=== PATIENT | male | born 1965 | race Caucasian/White ===

== ENCOUNTER 2020-09-01 09:12 | Emergency (ER) | payer OTHER, SELFPAY ==
[2020-09-01 09:28] VITALS: BP 162/92; PULSE 70; RESP 14; TEMP 36.1; O2SAT 100
[2020-09-01] MEDS: KETOROLAC (*BKC) 60 MG/2 ML VIAL IM (09:51)
[2020-09-01 09:55] LABS: Appearance Urine Clear (Clear); Bilirubin Urine Negative (Negative); Color Urine Yellow (Yellow); Glucose Urine UA Negative (Negative); Ketones Urine Negative (Negative); Leukocyte Esterase Ur Negative (Negative); Nitrate Urine Negative (Negative); Protein Urine Negative (Negative); Specific Grav Ur 1.025 (1.010-1.020); Urobilinogen Urine 0.2 mg/dL (0.2-1.0); pH Urine 5.5 (5.0-8.0)
--- NOTE | 2020-09-01 10:07 | ED.BACK ---
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 No fever or chills. MD elicited complaint: back pain Pertinent past history: prior back pain Onset (ago): day(s) Timing: intermittent Severity: moderate Pain scale (0-10): 8 Similar Symptoms Previously: Yes Radiation: right upper leg Exacerbating factors: movement Relieving factors: immobilization Context: while lifting, turning/twisting and bending Associated symptoms: denies other symptoms Related Data Allergies Allergy/AdvReac Type Severity Reaction Status Date / Time Penicillins Allergy Unknown Verified 07/25/17 09:47 sulfur dioxide Allergy Unknown Verified 07/25/17 09:47 Review of Systems Review of Systems: All systems reviewed & are unremarkable except as noted in HPI and below PMFSH Past Medical History Medical History Patient denies medical problems Family History Family History Other Diabetes mellitus Family history of malignant neoplasm Social History Social History Smoking status: Current every day smoker Alcohol intake: current Exam Const: General: no acute distress and alert Orientation/consciousness: patient oriented x3 HENMT: Head: normal to inspection Eyes: Conjunctivae: conjunctivae normal Pupils: Equal, round and reactive pupils present Neck: Neck: normal visual inspection, no lymphadenopathy and no meningeal signs Chest: Chest palpation & inspection: normal inspection of the chest Resp: Effort & Inspection: normal respiratory effort Auscultation: clear to auscultation bilaterally Cardio: Rate: regular rate Rhythm: regular rhythm GI: Auscultation: normal bowel sounds Urinary Catheter: Urinary Catheter: patent and draining Back/Spine/Pelvis: Back: no CVA tenderness Skin: General skin exam: normal color Rashes: no rashes Neuro: General: patient oriented x3, moves all extremities, no meningeal signs and no focal motor deficits Extrem: Other: right lower back pain right paravertebral area with palpation with no abdominal pain and negative straight leg-raising test Psych: Mental Status: mental status grossly normal Affect: normal affect Course Course Emergency Course: reassessment of patient after shot of Toradol feels much better pain level has improved, and reviewed urinalysis with patient and advised to drink more fluids, hand will give the patient a list of physicians to follow-up with. Vital Signs Vital signs: Vital Signs Temperature 36.1 C L 09/01/20 09:28 Pulse Rate 70 09/01/20 09:28 Respiratory Rate 14 09/01/20 09:28 Blood Pressure 162/92 H 09/01/20 09:28 Pulse Oximetry 100 09/01/20 09:28 Temperature 36.1 C L 09/01/20 09:28 Pulse Rate 70 09/01/20 09:28 Respiratory Rate 14 09/01/20 09:28 Blood Pressure 162/92 H 09/01/20 09:28 Pulse Oximetry 100 09/01/20 09:28 MDM - Back Pain/Injury Lab Data Labs: Lab Results 09/01/20 Range/Units 09:49 Urine Color Pending Urine Appearance Pending Urine pH Pending Ur Specific [place] Pending Urine Protein Pending Urine Glucose (UA) Pending Urine Ketones Pending Ur Blood (Man) Pending Urine Nitrate Pending Urine Bilirubin Pending Urine Urobilinogen Pending Ur Leukocyte Esterase Pending Critical Care Time Critical Care Time Critical Care Time: No Discharge Plan Discharge Clinical Impression: Sciatica Qualifiers:
[2020-09-01 10:09] LABS: Add Urine Microscopic? YES; Blood Urine Trace-Intact (Negative); Squamous Epithelial Cell Urine Few /hpf (Few); WBC Urine 0-3 /hpf (0-3)
[2020-09-01 10:10] LABS: Bacteria Urine Trace /hpf
== END 2020-09-01 10:21 | disposition home or self-care (01) ==
PROVIDERS: Emergency Provider Emergency Medicine
DX: M54.31 Sciatica, right side (principal)
CPT/HCPCS: 81001; 96372; 99283; J1885

== ENCOUNTER 2020-11-23 09:15 | Emergency (ER) | payer OTHER, SELFPAY ==
--- NOTE | ~2020-11-23 | CT_ITS ---
EXAMINATION: CT abdomen pelvis w con DATE: 11/23/2020 11:07 INDICATION: Left abdomen pain. Vomiting. TECHNIQUE: Computed tomography (CT) of the abdomen and pelvis was performed with 100 cc Omnipaque 350 intravenous contrast. The dose-length product was 316.97 mGy-cm. Automated exposure control and iter ative reconstruction technique were employed. COMPARISON: None. FINDINGS: Lung bases are unremarkable. Heart size is normal. No significant vascular abnormality. No lymphadenopathy. Gallbladder is present. The liver, spleen, pancreas, adrenal glands and kidneys are unremarkable. Nonobstructive bowel gas pattern. Diverticulosis without evidence for diverticulitis. No free air or free fluid. Mild lumbar spondylosis. There are surgical changes of the anterior abdominal wall. IMPRESSION: 1. No acute abdominal abnormality. Reviewed, dictated and finalized at location B.
--- NOTE | 2020-11-23 09:22 | ED.GIBLEED ---
HPI - GI Bleed General Chief complaint: Abdominal Pain Stated complaint: abd pain blood in stool Time Seen by Provider: 11/23/20 09:25 Source: patient Mode of arrival: ambulatory Limitations: no limitations History of Present Illness HPI Narrative: 55-year-old man comes in today complaining of bright red blood in his stools for the last week or 2. Patient states that has been quite regularly recently and most recently some episodes have had more than a tbsp of bright red blood. Patient states that he had some vomiting this morning and has had some left abdominal pain. He states he also has felt weak in the morning. He has not had any syncope, fever, blood in his vomitus, black stools, and denies NSAID use. He has had hemorrhoids in the past MD complaint: gross hematemesis Onset (ago): week(s) (1-2) Pain Consistency: intermittent Severity: moderate Relieving factors: none Exacerbating factors: none Context: hemorrhoids Associated symptoms: abdominal pain, nausea and vomiting Treatments Prior to Arrival: none Related Data Allergies Allergy/AdvReac Type Severity Reaction Status Date / Time Penicillins Allergy Unknown Rash Verified 11/23/20 09:32 sulfur dioxide Allergy Unknown Rash Verified 11/23/20 09:32 Review of Systems Constitutional: Constitutional: Denies chills, Denies fever(s) and Reports weakness Eyes: Eyes: Denies change in vision and Denies photophobia ENT: Denies nasal congestion and Denies sore throat Cardiovascular: Cardiovascular: Denies chest pain and Denies radiating jaw, neck or arm pain Respiratory: Respiratory: Denies cough and Denies dyspnea Gastrointestinal: Gastrointestinal: Reports abdominal pain, Denies diarrhea, Reports nausea and Reports vomiting Genitourinary: Genitourinary: Denies hematuria and Denies urinary frequency Musculoskeletal: Musculoskeletal: Denies arthralgias and Denies joint swelling Integumentary/Breasts: Skin/Breast: Denies pruritus, Denies erythema and Denies rash Neurologic: Denies vertigo, Reports dizziness, Denies syncope, Denies headache(s) and Denies numbness Hematologic/Lymphatic: Hematologic/Lymphatic: Denies easy bleeding and Denies easy bruising Allergic/Immunologic: Allergic/Immunologic: Denies lip swelling and Denies tongue swelling PMFSH Past Medical History Medical History (Updated 11/23/20 @ 12:08 by Moe Taylor MD) Hemorrhoids Patient denies medical problems Sciatica Family History Family History Other Diabetes mellitus Family history of malignant neoplasm Social History Social History (Updated 11/23/20 @ 12:05 by Moe Taylor MD) Smoking status: Current every day smoker Alcohol intake: current Alcohol use details: approximately every 3rd day Substance use: current Substance use type: marijuana Living arrangements: with family Exam Const: General: healthy appearing, no acute distress and alert Orientation/consciousness: patient oriented x3 Limitations: no limitations HENMT: Head: normal to inspection Mouth: Yes moist mucous membranes Throat: posterior oropharynx normal Eyes: Conjunctivae: conjunctivae normal Pupils: Equal, round and reactive pupils present EOM: EOMs intact bilaterally Resp: Effort & Inspection: normal respiratory effort and not labored Auscultation: clear to auscultation bilaterally, no rales, no rhonchi and no wheezes Cardio: Rate: regular rate Rhythm: regular rhythm Heart sounds: no murmurs GI: GI Palp: Yes Soft to palpation and Yes Tenderness to palpation present (GI) ( mild left upper quadrant) Auscultation: normal bowel sounds Rectal Exam: normal sphincter tone and heme positive stool Other: no tenderness, masses or palpable hemorrhoids on rectal exam. Skin: General skin exam: normal color, no jaundice and no pallor Rashes: no rashes Neuro: General: patient oriented x3, moves all extremities, no focal motor def
[2020-11-23 09:27] VITALS: BP 175/88; PULSE 71; RESP 20; TEMP 36.6; O2SAT 100
[2020-11-23 09:40] LABS: Occult Blood Positive (Negative)
[2020-11-23 09:55] LABS: Basophils Absolute Auto 0.04 K/mm3 (0.00-0.10); Basophils Percent Auto 0.5 % (0.0-1.0); Eosinophils Absolute Auto 0.32 K/mm3 (0.02-0.50); Eosinophils Percent Auto 4.3 % (1.0-6.0); Hematocrit 44.7 % (40.0-54.0); Hemoglobin 14.9 g/dL (14.0-18.0); Immature Granulocyte Absolute 0.03 K/mm3 (0.00-0.00); Immature Granulocyte Percent A 0.4 % (0.0-0.0); Lymphocytes Absolute Auto 1.29 K/mm3 (1.10-4.50); Lymphocytes Percent Auto 17.2 % (18.0-42.0); Mean Corpuscular HGB Conc 33.3 g/dL (32.0-36.0); Mean Corpuscular Hemoglobin 32.3 pg (27.0-31.0); Mean Platelet Volume 9.2 fl (8.7-11.0); Monocytes Absolute Auto 0.41 K/mm3 (0.10-0.90); Monocytes Percent Auto 5.5 % (2.0-11.0); Neutrophils Absolute Auto 5.4 K/mm3 (1.7-7.2); Neutrophils Percent Auto 72.1 % (50.0-70.0); Platelet Count Result 236 K/mm3 (150-420); Red Blood Count 4.61 M/mm3 (4.70-6.10); Red Cell Distribution Width 14.2 % (11.6-14.4); White Blood Count 7.5 K/mm3 (4.8-10.8)
[2020-11-23 10:09] VITALS: BP 123/74; PULSE 59
[2020-11-23 10:10] VITALS: BP 132/75; BP 135/86; PULSE 65; PULSE 69
[2020-11-23 10:10] LABS: INR 0.9; Partial Thromboplastin Time 25.9 SEC (23.90-30.70); Prothrombin Time 10.1 Seconds (9.50-12.10)
[2020-11-23 10:11] LABS: Alanine Aminotransferase 23 U/L (16-63); Albumin Level 3.7 g/dL (3.4-5.0); Alkaline Phosphatase 81 U/L (46-116); Anion Gap 9 mmol/L (8-16); Aspartate Amino Transferase 13 U/L (15-37); Bilirubin,Total 0.3 mg/dL (0.00-1.00); Blood Urea Nitrogen 16 mg/dL (7-18); Carbon Dioxide 27 mmol/L (21-32); Chloride 103 mmol/L (98-108); Estimated CRCL calculation 80 ml/min; Estimated Glomerular Filt Rate > 60; Glucose 113 mg/dL (70-99); Lipase 67 U/L (73-393); Osmolality Calculated 290 mOsm/kg (285-295); Potassium 4.3 mmol/L (3.5-5.1); Sodium 139 mmol/L (136-145); Total Protein 7.3 g/dL (6.4-8.2)
[2020-11-23] MEDS: ONDANSETRON INJ 4 MG/2 ML VIAL IV PUSH (10:11)
[2020-11-23] MEDS: PANTOPRAZOLE SODIUM IV 40 MG VIAL IV PUSH (10:12)
[2020-11-23 10:18] LABS: Lactic Acid Reflex 0.7 mmol/L (0.4-2.0)
[2020-11-23 12:30] VITALS: BP 131/86; PULSE 62; RESP 20; TEMP 36.7; O2SAT 99
== END 2020-11-23 12:35 | disposition home or self-care (01) ==
PROVIDERS: Emergency Provider Emergency Medicine
DX: K62.5 Hemorrhage of anus and rectum (principal)
CPT/HCPCS: 36415; 74177; 80053; 82272; 83605; 83690; 85025; 85610; 85730; 87040; 96374; 96375; 99283; 99284; C9113; J2405; Q9967

== ENCOUNTER 2021-02-15 13:02 | Emergency (ER) | payer OTHER, SELFPAY ==
--- NOTE | ~2021-02-15 | CT_ITS ---
EXAMINATION: CT abd pelvis lumbar w con INDICATION: Low back pain after fall TECHNIQUE: Computed tomographic images of the abdomen, pelvis, and lumbar spine were obtained after t he administration of 100 cc of Omnipaque 350 intravenous contrast. The dose-length product (DLP) was 331.58 mGy-cm. Automated exposure control and iterative reconstruction technique were employed. COMPARISON: None available FINDINGS: Abdomen and pelvis: The lung bases are clear. The heart size is normal. The liver, spleen, pancreas, gallbladder, and adrenal glands are normal. The kidneys are unremarkable. No pathologically enlarged abdominal or pelvic lymph nodes are identified. There is no free intraperitoneal gas or evidence of b owel obstruction. Lumbar spine: There is no fracture. There are 2 mm of retrolisthesis of L5 on S1. There is mild loss of intervertebral disc space height at L5-S1. The lumbar vertebral body heights are maintained. The p aravertebral soft tissues are normal. IMPRESSION: 1. No CT correlate for the patient's symptoms. 2. Mild lumbar spondylosis without acute findings. Reviewed, dictated and finalized at location A.
[2021-02-15 13:19] VITALS: BP 123/109; PULSE 74; RESP 20; TEMP 36.7; O2SAT 98
[2021-02-15 14:09] LABS: Basophils Absolute Auto 0.04 K/mm3 (0.00-0.10); Basophils Percent Auto 0.6 % (0.0-1.0); Eosinophils Absolute Auto 0.33 K/mm3 (0.02-0.50); Hematocrit 46.7 % (40.0-54.0); Hemoglobin 15.6 g/dL (14.0-18.0); Immature Granulocyte Absolute 0.02 K/mm3 (0.00-0.00); Immature Granulocyte Percent A 0.3 % (0.0-0.0); Lymphocytes Absolute Auto 1.76 K/mm3 (1.10-4.50); Lymphocytes Percent Auto 26.8 % (18.0-42.0); Mean Corpuscular HGB Conc 33.4 g/dL (32.0-36.0); Mean Corpuscular Hemoglobin 32.4 pg (27.0-31.0); Mean Corpuscular Volume 97.1 fL (78.0-102.0); Mean Platelet Volume 8.9 fl (8.7-11.0); Monocytes Absolute Auto 0.41 K/mm3 (0.10-0.90); Monocytes Percent Auto 6.3 % (2.0-11.0); Platelet Count Result 242 K/mm3 (150-420); Red Blood Count 4.81 M/mm3 (4.70-6.10); Red Cell Distribution Width 13.8 % (11.6-14.4); White Blood Count 6.6 K/mm3 (4.8-10.8)
[2021-02-15 14:32] LABS: Alanine Aminotransferase 21 U/L (16-63); Albumin Level 3.8 g/dL (3.4-5.0); Alkaline Phosphatase 81 U/L (46-116); Anion Gap 9 mmol/L (8-16); Aspartate Amino Transferase 14 U/L (15-37); Bilirubin,Total 0.4 mg/dL (0.00-1.00); Blood Urea Nitrogen 14 mg/dL (7-18); Calcium 9.4 mg/dL (8.5-10.1); Carbon Dioxide 29 mmol/L (21-32); Chloride 103 mmol/L (98-108); Estimated CRCL calculation 86 ml/min; Estimated Glomerular Filt Rate > 60; Glucose 114 mg/dL (70-99); Osmolality Calculated 293 mOsm/kg (285-295); Potassium 4.3 mmol/L (3.5-5.1); Sodium 141 mmol/L (136-145); Total Protein 7.4 g/dL (6.4-8.2)
[2021-02-15 15:00] VITALS: PULSE 72; RESP 20; O2SAT 99
--- NOTE | 2021-02-15 16:46 | ED.BACK ---
HPI - Back Pain/Injury General Chief Complaint: Back Pain/Injury Stated Complaint: Back pain Time Seen by Provider: 02/15/21 13:25 Source: patient Mode of arrival: ambulatory Limitations: no limitations Related Data Home Medications Medication Instructions Recorded Confirmed No Home Medications 02/15/21 02/15/21 Allergies Allergy/AdvReac Type Severity Reaction Status Date / Time Penicillins Allergy Unknown Rash Verified 02/15/21 13:33 sulfur dioxide Allergy Unknown Rash Verified 02/15/21 13:33 PMFSH Past Medical History Medical History (Updated 02/15/21 @ 16:48 by Kyle Marquez MD) Hemorrhoids Patient denies medical problems Sciatica Surgical History Surgical History (Updated 11/24/20 @ 10:05 by Jasmina Lopez) No history of previous surgery Family History Family History Other Diabetes mellitus Family history of malignant neoplasm Social History Social History (Updated 11/24/20 @ 10:04 by Jasmina Lopez) Smoking packs per day: 1 Smoking cigarettes per day: 20.0 Years smoked: 30 Smoking pack-years: 30.00 Smoking status: Current every day smoker Tobacco type: cigarettes Alcohol intake: current Substance use: current Substance use type: marijuana Gender identity (if verbalized by the patient): Male Course Vital Signs Vital signs: Vital Signs Temperature 36.7 C 02/15/21 13:19 Pulse Rate 74 02/15/21 13:19 Respiratory Rate 20 02/15/21 13:19 Blood Pressure 123/109 H 02/15/21 13:19 Pulse Oximetry 98 02/15/21 13:19 Temperature 36.7 C 02/15/21 13:19 Pulse Rate 74 02/15/21 13:19 Respiratory Rate 20 02/15/21 13:19 Blood Pressure 123/109 H 02/15/21 13:19 Pulse Oximetry 98 02/15/21 13:19 MDM - Back Pain/Injury Lab Data Result diagrams: 02/15/21 13:58 02/15/21 13:58 Labs: Lab Results 02/15/21 02/15/21 Range/Units 13:58 13:58 WBC 6.6 (4.8-10.8) K/mm3 RBC 4.81 (4.70-6.10) M/mm3 Hgb 15.6 (14.0-18.0) g/dL Hct 46.7 (40.0-54.0) % MCV 97.1 (78.0-102.0) fL MCH 32.4 H (27.0-31.0) pg MCHC 33.4 (32.0-36.0) g/dL RDW 13.8 (11.6-14.4) % Plt Count 242 (150-420) K/mm3 MPV 8.9 (8.7-11.0) fl Immature Gran % (Auto) 0.3 H (0.0-0.0) % Neut % (Auto) 61.0 (50.0-70.0) % Lymph % (Auto) 26.8 (18.0-42.0) % [place] % (Auto) 6.3 (2.0-11.0) % Eos % (Auto) 5.0 (1.0-6.0) % Baso % (Auto) 0.6 (0.0-1.0) % Lymph # (Auto) 1.76 (1.10-4.50) K/mm3 [place] # (Auto) 0.41 (0.10-0.90) K/mm3 Eos # (Auto) 0.33 (0.02-0.50) K/mm3 Baso # (Auto) 0.04 (0.00-0.10) K/mm3 Abs Immat Gran (auto) 0.02 H (0.00-0.00) K/mm3 Absolute Neuts (auto) 4.0 (1.7-7.2) K/mm3 Absolute Nucleated RBC 0.00 (0.00-0.00) K/mm3 Nucleated RBC % 0.0 (0-0.0) % Sodium 141 (136-145) mmol/L Potassium 4.3 (3.5-5.1) mmol/L Chloride 103 (98-108) mmol/L Carbon Dioxide 29 (21-32) mmol/L Anion Gap 9 (8-16) mmol/L BUN 14 (7-18) mg/dL Creatinine 0.94 (0.70-1.30) mg/dL Estim Creat Clear Calc 86 ml/min Estimated GFR > 60 (59 - ) Glucose 114 H (70-99) mg/dL Calculated Osmolality 293 (285-295) mOsm/kg Calcium 9.4 (8.5-10.1) mg/dL Total Bilirubin 0.4 (0.00-1.00) mg/dL AST 14 L (15-37) U/L ALT 21 (16-63) U/L Alkaline Phosphatase 81 (46-116) U/L Total Protein 7.4 (6.4-8.2) g/dL Albumin 3.8 (3.4-5.0) g/dL Discharge Plan Discharge Clinical Impression: Back pain Qualifiers: Back pain location: low back pain Chronicity: acute Back pain laterality: unspecified Sciatica presence: without sciatica Qualified Code(s): M54.5 - Low back pain Patient Disposition: Home, Self-Care Condition: Stable Instructions: Antibiotic Form, Back Pain (ED) Additional Instructions: follow up with family doctor as needed Prescriptions: New dexamethasone 4 mg tablet 4 mg
[2021-02-15 16:52] VITALS: BP 166/88; PULSE 60; RESP 20; TEMP 36.7; O2SAT 99
[2021-02-15] MEDS: DEXAMETHASONE 4 MG TABLET 12 MG PO (17:00)
== END 2021-02-15 17:10 | disposition home or self-care (01) ==
PROVIDERS: Emergency Provider Emergency Medicine; PCP Family Medicine
DX: M54.5 Low back pain (principal)
CPT/HCPCS: 36415; 72132; 74177; 80053; 85025; 99283; 99284; J8540; Q9967

== ENCOUNTER 2022-02-13 11:04 | Emergency (ER) | payer OTHER, SELFPAY ==
--- NOTE | ~2022-02-13 | CT_ITS ---
EXAMINATION: CT abdomen pelvis wo con DATE: 02/13/2022 12:18 INDICATION: Lower abdominal and back pain TECHNIQUE: Computed tomography (CT) of the abdomen and pelvis was performed without intravenous contr ast. The dose-length product (DLP) was 330.13 mGy-cm. Automated exposure control and iterative recons truction technique were employed. COMPARISON: 02/15/2021 FINDINGS: The lung bases are clear. The heart size is normal. The liver, spleen, pancreas, gallbladde r, and adrenal glands are normal. The kidneys are unremarkable. No pathologically enlarged abdominal or pelvic lymph nodes are identified. There is no free intraperitoneal gas or evidence of bowel obstr uction. There is mild lumbar spondylosis. Colonic diverticulosis is present without evidence of dive rticulitis. IMPRESSION: 1. No CT correlate for the patient's symptoms. Reviewed, dictated and finalized at location A.
[2022-02-13 11:10] VITALS: BP 113/84; PULSE 76; RESP 14; TEMP 36.6; O2SAT 100
[2022-02-13] MEDS: SODIUM CHLORIDE 0.9% IV 1,000 ML 999 ML IV CONT (12:01)
[2022-02-13] MEDS: ONDANSETRON INJ 4 MG/2 ML VIAL IV PUSH (12:02)
[2022-02-13] MEDS: KETOROLAC 30 MG/ML VIAL (*BKC) IM (12:02)
[2022-02-13] MEDS: PANTOPRAZOLE SODIUM IV 40 MG VIAL IV PUSH (12:03)
[2022-02-13 12:06] LABS: Hematocrit 48.8 % (40.0-54.0); Hemoglobin 16.3 g/dL (14.0-18.0); Mean Corpuscular HGB Conc 33.4 g/dL (32.0-36.0); Mean Corpuscular Hemoglobin 31.6 pg (27.0-31.0); Mean Corpuscular Volume 94.6 fL (78.0-102.0); Mean Platelet Volume 9.4 fl (8.7-11.0); Platelet Count Result 157 K/mm3 (150-420); Red Blood Count 5.16 M/mm3 (4.70-6.10); Red Cell Distribution Width 14.3 % (11.6-14.4); White Blood Count 3.9 K/mm3 (4.8-10.8)
--- NOTE | 2022-02-13 12:08 | PC.NURSE ---
PT IS LYING ON STRETCHER WITH IVF INFUSING ORDERED. PT HAS URINAL AT BEDSIDE, WARM BLANKET PROVIDED. PT IS AWARE OF PLAN OF CARE AND THE NEED FOR URINE SPECIMEN. NAD NOTED. WILL CONTINUE TO MONITOR.
[2022-02-13 12:21] LABS: Band Neutrophils Percent 0 % (0-6); Basophils Absolute Manual 0.03 K/mm3 (0-0.1); Basophils Percent Manual 1 % (0-1); Eosinophils Absolute Manual 0.03 K/mm3 (0.02-0.5); Eosinophils Percent Manual 1 % (1-6); Lymphocytes Absolute Manual 1.44 K/mm3 (1.1-4.5); Lymphocytes Percent Manual 37 % (18-44); Monocytes Absolute Manual 0.42 K/mm3 (0.1-0.90); Monocytes Percent Manual 11 % (3-9); Neutrophils Absolute Manual 1.95 K/mm3 (1.3-6.7); Neutrophils Percent Manual 50 % (46-73); Platelet Estimate Adequate (Adequate); Total Cells Counted 100
[2022-02-13 12:22] LABS: Alanine Aminotransferase 27 U/L (16-63); Albumin Level 3.7 g/dL (3.4-5.0); Alkaline Phosphatase 76 U/L (46-116); Anion Gap 7 mmol/L (8-16); Aspartate Amino Transferase 23 U/L (15-37); Bilirubin,Total 0.2 mg/dL (0.00-1.00); Blood Urea Nitrogen 17 mg/dL (7-18); Calcium 9.1 mg/dL (8.5-10.1); Carbon Dioxide 28 mmol/L (21-32); Chloride 103 mmol/L (98-108); Estimated CRCL calculation 66 ml/min; Estimated Glomerular Filt Rate > 60; Ethanol < 3 mg/dL (0-6); Glucose 110 mg/dL (70-99); Lipase 126 U/L (73-393); Osmolality Calculated 288 mOsm/kg (285-295); Potassium 4.1 mmol/L (3.5-5.1); Sodium 138 mmol/L (136-145); Total Protein 7.4 g/dL (6.4-8.2)
[2022-02-13 12:27] LABS: Lactic Acid Reflex 0.9 mmol/L (0.4-2.0)
[2022-02-13 12:33] LABS: Add Urine Microscopic? YES; Appearance Urine Clear (Clear); Bilirubin Urine Negative (Negative); Blood Urine 1+ (Negative); Color Urine Light Yellow (Yellow); Glucose Urine UA Negative (Negative); Ketones Urine Negative (Negative); Leukocyte Esterase Ur Trace (Negative); Nitrate Urine Positive (Negative); Protein Urine 1+ (Negative); Specific Grav Ur >= 1.030 (1.010-1.020); Urobilinogen Urine 0.2 mg/dL (0.2-1.0); pH Urine 5.5 (5.0-8.0)
[2022-02-13 12:38] LABS: Amphetamine Screen Urine Negative (Negative); Barbiturate Screen Urine Negative (Negative); Benzodiazepines Screen Urine Negative (Negative); Cannabinoid Screen Urine Positive (Negative); Cocaine Screen Urine Negative (Negative); Methadone Screen Urine Negative (Negative); Opiate Screen Urine Negative (Negative); Phencyclidine Screen Urine Negative (Negative)
[2022-02-13 12:40] LABS: Bacteria Urine 2+ /hpf; RBC Urine 0-2 /hpf (0-2); Squamous Epithelial Cell Urine Rare /hpf (Few); WBC Urine 16-20 /hpf (0-3)
[2022-02-13 12:41] LABS: Influenza A QL RT-PCR Negative (Negative); Influenza B QL RT-PCR Negative (Negative); SARS-CoV-2 RNA PCR Positive (Negative)
[2022-02-13 12:51] VITALS: BP 107/72; PULSE 62; RESP 16; O2SAT 98
--- NOTE | 2022-02-13 13:47 | ED.GENADULT ---
HPI - General Adult General Chief complaint: Unspecified Stated complaint: since saturday stomach,back,head,legs hurt Time Seen by Provider: 02/13/22 11:08 Source: patient and RN notes reviewed Mode of arrival: ambulatory Limitations: no limitations History of Present Illness HPI narrative: generalized bodyaches, and mild dysuria. Onset (ago): day(s) (2) Location: abdomen Radiation: non-radiation Severity: moderate Severity scale (1-10): 4 Quality: aching Pain Consistency: constant Relieving factors: none Exacerbating factors: none Treatments prior to arrival: none Related Data Allergies Allergy/AdvReac Type Severity Reaction Status Date / Time Penicillins Allergy Unknown Rash Verified 02/13/22 11:23 sulfur dioxide Allergy Unknown Rash Verified 02/13/22 11:23 Review of Systems Review of Systems: All systems reviewed & are unremarkable except as noted in HPI and below Constitutional: Constitutional: Reports no additional constitutional complaints Eyes: Eyes: Reports no additional eye complaints ENT: Reports system reviewed and no additional complaints, except as documented Cardiovascular: Cardiovascular: Reports no additional cardiovascular complaints Respiratory: Respiratory: Reports no additional respiratory complaints Gastrointestinal: Gastrointestinal: Reports no additional gastrointestinal complaints Musculoskeletal: Musculoskeletal: Reports no additional musculoskeletal complaints Integumentary/Breasts: Skin/Breast: Reports system reviewed and no additional complaints, except as docu Neurologic: Reports system reviewed and no additional complaints, except as documented Psychiatric: Psychiatric: Reports no additional psychiatric complaints Endocrine: Endocrine: Reports no additional endocrine complaints Hematologic/Lymphatic: Hematologic/Lymphatic: Reports no additional hematologic/lymphatic complaints Allergic/Immunologic: Allergic/Immunologic: Reports no additional allergic/immunologic complaints [facility] Past Medical History Medical History COVID-19 Hemorrhoids Patient denies medical problems Sciatica UTI (urinary tract infection) Surgical History Surgical History No history of previous surgery Family History Family History Other Diabetes mellitus Family history of malignant neoplasm Social History Social History Smoking packs per day: 1 Smoking cigarettes per day: 20.0 Years smoked: 30 Smoking pack-years: 30.00 Smoking status: Current every day smoker Tobacco type: cigarettes Alcohol intake: current Alcohol use details: approximately every 3rd day Substance use: current Substance use type: marijuana Gender identity (if verbalized by the patient): Male Exam Const: General: healthy appearing and no acute distress Nutritional Appearance: well nourished Orientation/consciousness: patient oriented x3 Limitations: no limitations HENMT: Head: normal to inspection Ears: external ears normal, TM's normal bilaterally and EAC's normal General nose exam: Normal external nose present and Normal nares present Face and sinus: normal facial exam and sinuses nontender Mouth: Yes Normal oral and palatal mucosa present and Yes moist mucous membranes Teeth and gingiva: dentition normal Throat: posterior oropharynx normal Eyes: Conjunctivae: conjunctivae normal Pupils: Equal, round and reactive pupils present EOM: EOMs intact bilaterally Neck: Neck: normal visual inspection, no lymphadenopathy and no meningeal signs Chest: Chest palpation & inspection: normal inspection of the chest Resp: Effort & Inspection: normal respiratory effort Auscultation: clear to auscultation bilaterally Cardio: Rate: regular rate Rhythm: regular rhythm GI: GI Pal
[2022-02-13 14:45] VITALS: BP 110/72; PULSE 72; RESP 16; TEMP 36.7; O2SAT 98
== END 2022-02-13 14:45 | disposition home or self-care (01) ==
PROVIDERS: Emergency Provider Emergency Medicine; PCP Family Medicine
DX: U07.1 COVID-19 (principal); N39.0 Urinary tract infection, site not specified
CPT/HCPCS: 36415; 74176; 80053; 80307; 81001; 83605; 83690; 85025; 87502; 96361; 96365; 96372; 96375; 99284; C9113; C9803; J0696; J1885; J2405; J7030; U0003; U0005

== ENCOUNTER 2023-04-15 15:52 | Emergency (ER) | payer OTHER, SELFPAY ==
[2023-04-15 15:52] VITALS: BP 132/99; PULSE 83; RESP 16; TEMP 37.2; O2SAT 96
--- NOTE | 2023-04-15 16:06 | ED.GENADULT ---
HPI - General Adult General Chief complaint: Skin/Abscess/Foreign Body Stated complaint: spider bite Time Seen by Provider: 04/15/23 16:05 History of Present Illness HPI narrative: Healthy 57yo man presents for examination of a small wound on the right dorsal base of thumb. First noticed Saturday with a small spider crawling on him. Slight swelling, was worried about brown recluse venom. Related Data Home Medications Medication Instructions Recorded Confirmed No Home Medications 04/15/23 04/15/23 Allergies Allergy/AdvReac Type Severity Reaction Status Date / Time Penicillins Allergy Unknown Rash Verified 04/15/23 15:57 sulfur dioxide Allergy Unknown Rash Verified 04/15/23 15:57 Review of Systems Review of Systems: All systems reviewed & are unremarkable except as noted in HPI and below Constitutional: Constitutional: Denies fever(s) ENT: Denies dysphagia Cardiovascular: Cardiovascular: Denies chest pain Respiratory: Respiratory: Denies dyspnea PMFSH Past Medical History Medical History COVID-19 Hemorrhoids Patient denies medical problems Sciatica UTI (urinary tract infection) Surgical History Surgical History No history of previous surgery Family History Family History Other Diabetes mellitus Family history of malignant neoplasm Social History Social History Smoking packs per day: 1 Smoking cigarettes per day: 20.0 Years smoked: 30 Smoking pack-years: 30.00 Smoking status: Current every day smoker Tobacco type: cigarettes Alcohol intake: current Alcohol use details: approximately every 3rd day Substance use: current Substance use type: marijuana Living arrangements: with family Gender identity (if verbalized by the patient): Male Exam Const: General: healthy appearing and no acute distress Eyes: Conjunctivae: conjunctivae normal Resp: Effort & Inspection: normal respiratory effort and not labored Cardio: Rate: regular rate Skin: General skin exam: normal color, no jaundice and no pallor Other: small < 1cm raised bump at site of spider bite to right base of thumb. No surrounding swelling or cellulitis. No drainage. Extrem: General: normal to inspection Course Vital Signs Vital signs: Vital Signs Temperature 37.2 C 04/15/23 15:52 Pulse Rate 83 04/15/23 15:52 Respiratory Rate 16 04/15/23 15:52 Blood Pressure 132/99 H 04/15/23 15:52 Pulse Oximetry 96 04/15/23 15:52 Oxygen Delivery Room Air 04/15/23 15:52 Temperature 37.2 C 04/15/23 15:52 Pulse Rate 83 04/15/23 15:52 Respiratory Rate 16 04/15/23 15:52 Blood Pressure 132/99 H 04/15/23 15:52 Pulse Oximetry 96 04/15/23 15:52 Oxygen Delivery Room Air 04/15/23 15:52 Medical Decision Making MDM Narrative Medical decision making narrative: minor wound DDx likely spider bite, likely dry bite, no evidence of envenomation or secondary infection. Basic wound care discussed. Vital Signs Vital Signs: Vital Signs Temperature 37.2 C 04/15/23 15:52 Pulse Rate 83 04/15/23 15:52 Respiratory Rate 16 04/15/23 15:52 Blood Pressure 132/99 H 04/15/23 15:52 Pulse Oximetry 96 04/15/23 15:52 Oxygen Delivery Room Air 04/15/23 15:52 Temperature 37.2 C 04/15/23 15:52 Pulse Rate 83 04/15/23 15:52 Respiratory Rate 16 04/15/23 15:52 Blood Pressure 132/99 H 04/15/23 15:52 Pulse Oximetry 96 04/15/23 15:52 Oxygen Delivery Room Air 04/15/23 15:52 Discharge Plan Discharge Clinical Impression: Nonvenomous spider bite Patient Disposition: Home, Self-Care Condition: Improved Additional Instructions: Your wound appears minor with no sign of envenomenation or infection. Keep it clean and dry.
== END 2023-04-15 16:27 | disposition home or self-care (01) ==
PROVIDERS: Emergency Provider Emergency Medicine
DX: S60.361A Insect bite (nonvenomous) of right thumb, initial encounter (principal); W57.XXXA Bitten or stung by nonvenomous insect and other nonvenomous arthropods, initial encounter; F17.210 Nicotine dependence, cigarettes, uncomplicated; F12.90 Cannabis use, unspecified, uncomplicated
CPT/HCPCS: 99281

== ENCOUNTER 2023-10-01 10:20 | Emergency (ER) | payer OTHER, SELFPAY ==
--- NOTE | ~2023-10-01 | XR_ITS ---
EXAMINATION: XR lumbar spine 2-3V DATE: 10/01/2023 10:49 INDICATION: Low back pain. TECHNIQUE: 3 views of lumbar spine were obtained. COMPARISON: CT abdomen and pelvis 02/13/2022 FINDINGS: There is 7 degrees levocurvature of lumbar spine. There is mild chronic anterior wedging of T12 and L1 vertebral bodies. There is mildly decreased disc height at L1-L2 and L3-L4 and severely d ecreased disc height at L5-S1. There is multilevel facet joint osteoarthritis, severe on the left at L5-S1. IMPRESSION: 1. Severe lower lumbar spondylosis. Reviewed, dictated and finalized at location A. ACE CARETAKER
[2023-10-01 10:20] VITALS: BP 135/89; PULSE 80; RESP 16; TEMP 36.4; O2SAT 97
[2023-10-01 10:21] VITALS: BP 135/89; PULSE 82; RESP 20; TEMP 36.8; O2SAT 97
--- NOTE | 2023-10-01 10:22 | ED.WEAKNESS ---
HPI - Weakness General Chief complaint: Back Pain/Injury Stated complaint: back pain Time Seen by Provider: 10/01/23 10:22 Source: patient Mode of arrival: ambulatory Limitations: no limitations History of Present Illness HPI Narrative: Patient is a 58-year-old male with lower back pain for the past few days. He has no shooting pains down the legs. No injury. MD Complaint: difficulty walking ( Only due to back pain) Onset (ago): day(s) (3) Duration: constant Location: other ( lumbar spine) Migration: none Severity: moderate Severity scale (1-10): 5 Quality: aching and sharp Relieving factors: none Exacerbating factors: none Associated symptoms: denies other symptoms Related Data Allergies Allergy/AdvReac Type Severity Reaction Status Date / Time Penicillins Allergy Unknown Rash Verified 10/01/23 10:25 sulfur dioxide Allergy Unknown Rash Verified 10/01/23 10:25 Review of Systems Review of Systems: All systems reviewed & are unremarkable except as noted in HPI and below Constitutional: Constitutional: Reports no additional constitutional complaints Eyes: Eyes: Reports no additional eye complaints ENT: Reports system reviewed and no additional complaints, except as documented Cardiovascular: Cardiovascular: Reports no additional cardiovascular complaints Respiratory: Respiratory: Reports no additional respiratory complaints Gastrointestinal: Gastrointestinal: Reports no additional gastrointestinal complaints Genitourinary: Genitourinary: Reports no additional male genitourinary complaints Musculoskeletal: Musculoskeletal: Reports no additional musculoskeletal complaints Integumentary/Breasts: Skin/Breast: Reports system reviewed and no additional complaints, except as docu Neurologic: Reports system reviewed and no additional complaints, except as documented Psychiatric: Psychiatric: Reports no additional psychiatric complaints Endocrine: Endocrine: Reports no additional endocrine complaints Hematologic/Lymphatic: Hematologic/Lymphatic: Reports no additional hematologic/lymphatic complaints Allergic/Immunologic: Allergic/Immunologic: Reports no additional allergic/immunologic complaints PMFSH Past Medical History Medical History COVID-19 Hemorrhoids Patient denies medical problems Sciatica UTI (urinary tract infection) Surgical History Surgical History No history of previous surgery Family History Family History Other Diabetes mellitus Family history of malignant neoplasm Social History Social History Smoking packs per day: 1 Smoking cigarettes per day: 20.0 Years smoked: 30 Smoking pack-years: 30.00 Smoking status: Current every day smoker Tobacco type: cigarettes Alcohol intake: current Alcohol use details: approximately every 3rd day Substance use: current Substance use type: marijuana Living arrangements: with family Gender identity (if verbalized by the patient): Male Exam Const: General: healthy appearing Nutritional Appearance: well nourished Orientation/consciousness: patient oriented x3 HENMT: Head: normal to inspection Ears: external ears normal Face/Nose/Sinus: Normal external nose present Eyes: Conjunctivae: conjunctivae normal Pupils: Equal, round and reactive pupils present EOM: EOMs intact bilaterally Neck: Neck: normal visual inspection Chest: Chest palpation & inspection: normal inspection of the chest Resp: Effort & Inspection: normal respiratory effort and not labored Auscultation: clear to auscultation bilaterally and no crackles Cardio: Rate: regular rate Rhythm: regular rhythm Heart sounds: no murmurs GI: Inspection: non-distended GI Palp: Yes Soft to palpation and No Tenderness to palpation present (GI)
[2023-10-01] MEDS: KETOROLAC (*BKC) 60 MG/2 ML VIAL IM (11:33)
[2023-10-01 11:35] VITALS: BP 131/84; PULSE 66; RESP 18; TEMP 37.1; O2SAT 98
== END 2023-10-01 11:37 | disposition home or self-care (01) ==
PROVIDERS: Emergency Provider Emergency Medicine
DX: M54.50 Low back pain, unspecified (principal); F17.210 Nicotine dependence, cigarettes, uncomplicated
CPT/HCPCS: 72100; 96372; 99283; J1885

== ENCOUNTER 2023-10-30 18:03 | Emergency (ER) | payer OTHER, SELFPAY ==
[2023-10-30 18:05] VITALS: PULSE 94; RESP 20; TEMP 37.1; O2SAT 98
--- NOTE | 2023-10-30 18:12 | ED.EYEPROB ---
HPI - Eye Problem General Chief complaint: Eye Problems Stated complaint: eye Source: patient Mode of arrival: ambulatory Limitations: no limitations History of Present Illness HPI Narrative: 58-year-old male with chronic low back pain presents to the ER left lower eyelid stye which has been present for the past few days. The swelling is uncomfortable but not painful. No vision changes. No eye discharge. chief complaint: other ( Left lower lid stye) Onset (ago): day(s) Onset description: gradual Duration: constant Location: left eye Mechanism: none Severity: moderate Associated symptoms: none Treatments Prior to Arrival: irrigated eye Related Data Patient tetanus UTD: Yes Allergies Allergy/AdvReac Type Severity Reaction Status Date / Time Penicillins Allergy Unknown Rash Verified 10/01/23 10:25 sulfur dioxide Allergy Unknown Rash Verified 10/01/23 10:25 Review of Systems Review of Systems: All systems reviewed & are unremarkable except as noted in HPI and below Constitutional: Constitutional: Reports as per HPI and Reports no additional constitutional complaints Eyes: Eyes: Reports as per HPI and Reports no additional eye complaints Comments: swelling of the left lower eyelid. No a discharge or vision changes. ENT: Reports system reviewed and no additional complaints, except as documented and Reports as per HPI Cardiovascular: Cardiovascular: Reports as per HPI and Reports no additional cardiovascular complaints Respiratory: Respiratory: Reports as per HPI and Reports no additional respiratory complaints Gastrointestinal: Gastrointestinal: Reports as per HPI and Reports no additional gastrointestinal complaints Genitourinary: Genitourinary: Reports no additional male genitourinary complaints and Reports as per HPI Musculoskeletal: Musculoskeletal: Reports no additional musculoskeletal complaints, Reports as per HPI and Reports back pain Integumentary/Breasts: Skin/Breast: Reports system reviewed and no additional complaints, except as docu and Reports as per HPI Neurologic: Reports system reviewed and no additional complaints, except as documented and Reports as per HPI Psychiatric: Psychiatric: Reports no additional psychiatric complaints and Reports as per HPI Endocrine: Endocrine: Reports no additional endocrine complaints and Reports as per HPI Hematologic/Lymphatic: Hematologic/Lymphatic: Reports no additional hematologic/lymphatic complaints and Reports as per HPI Allergic/Immunologic: Allergic/Immunologic: Reports no additional allergic/immunologic complaints and Reports as per HPI [facility] Past Medical History Medical History COVID-19 Hemorrhoids Patient denies medical problems Sciatica UTI (urinary tract infection) Surgical History Surgical History No history of previous surgery Family History Family History Other Diabetes mellitus Family history of malignant neoplasm Social History Social History Smoking packs per day: 1 Smoking cigarettes per day: 20.0 Years smoked: 30 Smoking pack-years: 30.00 Smoking status: Current every day smoker Tobacco type: cigarettes Alcohol intake: current Alcohol use details: approximately every 3rd day Substance use: current Substance use type: marijuana Living arrangements: with family Gender identity (if verbalized by the patient): Male Exam Const: General: no acute distress Orientation/consciousness: patient oriented x3 Limitations: no limitations HENMT: Head: normal to inspection Ears: external ears normal Face/Nose/Sinus: Normal external nose present Face and sinus: normal facial exam Mouth: Yes Normal oral and palatal mucosa present Throat: posterior oropharynx normal Eyes: Conju
[2023-10-30] MEDS: ERYTHROMYCIN OPHTH OINTMENT 3.5 GM TUBE 1 APPLIC LEFT EYE (18:28)
== END 2023-10-30 18:40 | disposition home or self-care (01) ==
LOC: CHSED 18:39
PROVIDERS: Emergency Provider Internal Medicine Critical Care Medicine
DX: H00.015 Hordeolum externum left lower eyelid (principal); F17.210 Nicotine dependence, cigarettes, uncomplicated
CPT/HCPCS: 99283; A9270

== ENCOUNTER 2023-12-03 13:30 | Outpatient (CLI) | payer OTHER, SELFPAY ==
--- NOTE | ~2023-12-03 | XR_ITS ---
XR lumbar spine 2-3V 12/03/2023 14:01 Indication: Back pain. Procedure: 3 views lumbar spine Comparison: 10/01/2023 Findings: There has been interval progression of loss of disc height at all lumbar levels. There are prominent ventral osteophytes at L1-2, L2-3 and L3-4. There is scoliosis. Sacral foramen are symmetri c. There are chronic anterior wedge compression deformities of T12 and L1. There is multilevel facet hypertrophy. Impression: 1: Severe lumbar spondylosis. Reviewed, dictated and finalized at location A. Impression: 1: Severe lumbar spondylosis.
== END 2023-12-03 13:31 | disposition home or self-care (01) ==
LOC: CHSIMG 13:32
PROVIDERS: PCP Family Medicine; Visit Provider Family Medicine
DX: G89.29 Other chronic pain (principal); M54.40 Lumbago with sciatica, unspecified side; M43.06 Spondylolysis, lumbar region
CPT/HCPCS: 72100

== ENCOUNTER 2025-01-23 10:25 | Emergency (ER) | payer OTHER, SELFPAY ==
--- NOTE | ~2025-01-23 | XR_ITS ---
XR elbow RT min 3V 01/23/2025 10:40 Indication: Right elbow pain for one month Procedure: 4 views right elbow Comparison: No prior studies for comparison. Findings: There is an expansile cortical lesion involving the proximal aspect of the radius, most lik earlene benign osteochondroma. There is a second osteochondroma originating from radial neck. No acute fr acture is identified. There is a prominent enthesophyte at the olecranon process. No significant join t effusion. Impression: 1: Probable benign cortical lesions of the proximal aspect of the radius, most likely osteochondromas . Correlate for point tenderness. Consider follow-up x-rays in 4-6 months to assess stability. Reviewed, dictated and finalized at location A. Impression: 1: Probable benign cortical lesions of the proximal aspect of the radius, most likely osteochondromas. Correlate for point tenderness. Consider follow-up x-ra ys in 4-6 months to assess stability.
[2025-01-23 10:25] VITALS: BP 112/84; PULSE 77; RESP 16; TEMP 36.6; O2SAT 96
--- OUTSIDE RECORDS SUMMARY | 2025-01-23 10:27 | XMS_ITS | Clinical Summary ---
Author Organization [facility] Address [address] [place] [address] Care Team Providers Care Railcar Foreman Name Role Phone Unavailable Primary Care Provider Unavailabl e Source Comments [facility],non-owned Affiliates and Associated Physician Practices is amultiple site organization consisting of ambulatory clinics and hospital sitesin [place], [place], [place] and [place]. This disclosure is being madepursuant to the Care Everywhere program and may not contain all information available regarding this patient. Last updated 18.[facility] [address] Allergies Active Allergy Reactions Criticality Noted Date Comments Penicillins Urticaria Medium 03/23/2022 Social History Tobacco Use Types Packs/Day Years Used Date Smoking Tobacco: Never Assessed Sex and Gender Information Value Date Recorded Sex Assigned at Not on file Legal Sex Male 11:07 PM CDT Gender Identity Not on file Sexual Orientation Not on file Last Filed Vital Signs Vital Sign Reading Time Taken Comments Blood Pressure 125/74 03/24/2022 4:25 AM CDT Pulse 81 03/24/2022 4:25 AM CDT Temperature 36.2 C (97.2 F) 03/23/2022 11:16 PM CDT Respiratory Rate 18 03/24/2022 4:25 AM CDT Oxygen Saturation 98% 03/24/2022 4:25 AM CDT Inhaled Oxygen Concentration - - Weight 79.4 kg (175 lb) 03/23/2022 11:16 PM CDT Height 172.7 cm (5' 8) 03/23/2022 11:16 PM CDT Body Mass Index 26.61 03/23/2022 11:16 PM CDT Plan of Treatment Health Maintenance Due Date Last Done Comments WIL (AGES 45-75) - COL ON CA SCREENING 1966 COLON MONITORING 1966 COLONOSCOPY - COLON CA SCREENING 1966 CT COLONOGRAPHY - COLON CA SCREENING 1966 Colorectal Cancer Screening 1966 FIT - COLON CA SCREENING 1966 FLEX SIG - COLON CA SCREENING 1966 LIPID TESTING 1966 HIV SCREENING 1981 HEPATITIS C SCREENING 09/06/1984 DTAP/TDAP/TD VACCINES (1 - Tdap) 1985 HEPATITIS B VACCINE (1 of 3 - 19+ 3-dose series) 1985 PNEUMOCOCCAL VACCINE 50+ (1 of 1 - PCV) 2016 ZOSTER VACCINE (1 of 2) 2016 COVID-19 VACCINE ( - 2023-2 5 season) 2024 DEPRESSION SCREENING 08/26/2024 INFLUENZA VACCINE (Season Ended) 2025 HIB VACCINE Aged Out No longer eligi ble based on patient's age to complete this topic HPV VACCINE Aged Out No longer eligi ble based on patient's age to complete this topic MENINGOCOCCAL (Group B) VACC INE SHARED DECISION-MAKING Aged Out No longer eligibl e based on patient's age to complete this topic MENINGOCOCCAL GROUPS A/C/Y/W VACCINE Aged Out No longer eligible b ased on patient's age to complete this topic Insurance
--- NOTE | 2025-01-23 10:33 | ED_ITS ---
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 There is tenderness to the lateral aspect of his right elbow with no bruising. Complaint: extremity pain Onset (ago): day(s) Pain Consistency: intermittent Location: right Severity scale (1-10): 1 Quality: aching Related Data Allergies Allergy/AdvReac Type Severity Reaction Status Date / Time Penicillins Allergy Unknown Rash Verified 01/23/25 10:38 sulfur dioxide Allergy Unknown Rash Verified 01/23/25 10:38 Review of Systems Review of Systems: All systems reviewed & are unremarkable except as noted in HPI and below PMFSH Past Medical History Medical History UTI (urinary tract infection) COVID-19 Hemorrhoids Sciatica Patient denies medical problems Surgical History Surgical History No history of previous surgery Family History Family History Other Diabetes mellitus Family history of malignant neoplasm Social History Social History Smoking packs per day: 1 Smoking cigarettes per day: 20.0 Years smoked: 30 Smoking pack-years: 30.00 Smoking status: Current every day smoker Tobacco type: cigarettes Alcohol intake: current Alcohol use details: approximately every 3rd day Substance use: current Substance use type: marijuana Living arrangements: with family Gender identity (if verbalized by the patient): Male Exam Const: General: healthy appearing and no acute distress Nutritional Appearance: well nourished Orientation/consciousness: patient oriented x3 Limitations: no limitations Resp: Effort & Inspection: normal respiratory effort Auscultation: clear to auscultation bilaterally Cardio: Rate: regular rate Rhythm: regular rhythm GI: GI Palp: Yes Soft to palpation Auscultation: normal bowel sounds Skin: General skin exam: normal color Rashes: no rashes Wounds: no woun ds Neuro: General: patient oriented x3 and moves all extremities Cranial nerves: Yes Nystagmus not present Extrem: Other: Pain lateral aspect of his right elbow with movement and palpation Course Course Emergency Course: patient pain level currently is about a 1/10 client any pain medication at this time x-ray performed and reveals no acute fractures. Vital Signs Vital signs: Vital Signs Temperature 36.6 C 01/23/25 10:25 Pulse Rate 77 01/23/25 10:25 Respiratory Rate 16 01/23/25 10:25 Blood Pressure 112/84 01/23/25 10:25 Pulse Oximetry 96 01/23/25 10:25 Oxygen Delivery Room Air 01/23/25 10:25 Temperature 36.6 C 01/23/25 10:25 Pulse Rate 77 01/23/25 10:25 Respiratory Rate 16 01/23/25 10:25 Blood Pressure 112/84 01/23/25 10:25 Pulse Oximetry 96 01/23/25 10:25 Oxygen Delivery Room Air 01/23/25 10:25 Critical Care Time Critical Care Time Critical Care Time: No Discharge Plan Discharge Clinical Impression: Tendinitis Patient Disposition: Home Condition: Stable Instructions: Antibiotic Form, Tendinitis (ED) Additional Instructions: advised patient to take medication as prescribed continue Juan Antonio wrap and follow with primary if symptoms persist or worsen. Patient Language: Dominican Prescriptions: New naproxen 500 mg tablet 500 mg PO BID Qty: 14 0RF Follow-up/Referrals: Cleveland Gracia MD [Primary Care Provider] -
--- OUTSIDE RECORDS SUMMARY | 2025-01-23 11:01 | XMS_ITS | Clinical Summary ---
Author Organization [facility] Address [address] [place] [address] Care Team Providers Care Beaming Machine Operator Name Role Phone Unavailable Primary Care Provider Unavailabl e Source Comments [facility],non-owned Affiliates and Associated Physician Practices is amultiple site organization consisting of ambulatory clinics and hospital sitesin [place], [place], [place] and [place]. This disclosure is being madepursuant to the Care Everywhere program and may not contain all information available regarding this patient. Last updated 18.[facility] Allergies Active Allergy Reactions Criticality Noted Date [...]
== END 2025-01-23 10:59 | disposition home or self-care (01) ==
LOC: CHSED 10:59
PROVIDERS: Emergency Provider Emergency Medicine; PCP Internal Medicine
DX: M77.8 Other enthesopathies, not elsewhere classified (principal); F17.210 Nicotine dependence, cigarettes, uncomplicated
CPT/HCPCS: 73080; 99283

== ENCOUNTER 2025-02-23 13:33 | Emergency (ER) | payer OTHER, SELFPAY ==
--- NOTE | ~2025-02-23 | XR_ITS ---
Lumbosacral Spine: AP and lateral views Clinical History: Pain Findings: The normal lordotic curve is maintained. No fracture seen. There is minimal grade 1 retroli sthesis of L1 over L2, and L2 over L3. There is moderate facet arthropathy throughout the lumbar spin e. There are mild degenerative disc changes. The sacroiliac joints are normally outlined. Impression: Moderate degenerative spondylosis overall, as detailed above. Reviewed, dictated and finalized at location M. Impression: Moderate degenerative spondylosis overall, as detailed above.
[2025-02-23 13:33] VITALS: BP 142/102; PULSE 72; RESP 16; TEMP 36.7; O2SAT 97
--- OUTSIDE RECORDS SUMMARY | 2025-02-23 13:39 | XMS_ITS | Clinical Summary ---
Author Organization [facility] Address [address] [place] [id number] Care Team Providers Care Security Agent Name Role Phone None, Provider MD Primary Care Provider Unavaila ble Allergies Active Allergy Reactions Criticality Noted Date Comments Penicillins Hives Medium 01/13/2021 Sulfa Antibiotics Hives Medium 01/13/2021 Medications No known medications Social History Tobacco Use Types Packs/Day Years Used Date Smoking Tobacco: Every Day Cigarettes Smokeless Tobacco: Never Alcohol Use Standard Drinks/Week Comments Yes 0 (1 standard drink = 0.6 oz pur e alcohol) beer every other day Sex and Gender Information Value Date Recorded Sex Assigned at Not on file Legal Sex Male 9:02 AM CDT Gender Identity Not on file Sexual Orientation Not on file Last Filed Vital Signs Vital Sign Reading Time Taken Comments Blood Pressure 137/89 03/14/2021 11:17 AM CDT Pulse 78 03/14/2021 11:17 AM CDT Temperature 37.4 C (99.3 F) 03/14/2021 11:17 AM CDT Respiratory Rate 20 03/14/2021 11:17 AM CDT Oxygen Saturation 98% 03/14/2021 11:17 AM CDT Inhaled Oxygen Concentration - - Weight 77.1 kg (170 lb) 03/14/2021 11:17 AM CDT Height 188 cm (6' 2) 03/14/2021 11:17 AM CDT Body Mass Index 21.83 03/14/2021 11:17 AM CDT Plan of Treatment Health Maintenance Due Date Last Done Comments Colorectal Cancer Screening Colonoscopy (10 Years) 1966 Annual Physical 1969 Hepatitis C 1984 DTaP, Tdap and Td Vaccines ( 1 - Tdap) 1985 Hepatitis B Vaccines (1 of 3 - 19+ 3-dose series) 1985 Pneumococcal Vaccine: 50+ Ye ars (1 of 2 - PCV) 1985 Zoster Vaccines (1 of 2) 2016 COVID-19 Vaccine ( - 2023-2 5 season) 2024 Meningococcal B Vaccine Aged Out No l onger eligible based on patient's age to complete this topic Meningococcal Vaccine Aged Out No brenda eugenio eligible based on patient's age to complete this topic RSV Immunizations Under 20 Months Aged Out No longer eligible based on patient's age to complete this topic Insurance [place] Care Teams Security Agent Relationship Specialty Start Date End Date None, Provider, PCP - General 04/12/20
--- OUTSIDE RECORDS SUMMARY | 2025-02-23 13:39 | XMS_ITS | Clinical Summary ---
Author Organization [facility] Address [address] [place] [address] Care Team Providers Care Senior Environmental Practice Leader Name Role Phone Unavailable Primary Care Provider Unavailabl e Source Comments [facility],non-owned Affiliates and Associated Physician Practices is amultiple site organization consisting of ambulatory clinics and hospital sitesin [place], [place], [place] and [place]. This disclosure is being madepursuant to the Care Everywhere program and may not contain all information available regarding this patient. Last updated 18.[facility] [employer] Allergies Active Allergy Reactions Criticality Noted Date [...]
[2025-02-23] MEDS: KETOROLAC (*BKC) 60 MG/2 ML VIAL IM (13:56)
--- OUTSIDE RECORDS SUMMARY | 2025-02-23 14:37 | XMS_ITS | Clinical Summary ---
Author Organization [facility] Address [address] [place] [address] Care Team Providers Care Copper Flotation Operator Name Role Phone Unavailable Primary Care Provider Unavailabl e Source Comments [facility],non-owned Affiliates and Associated Physician Practices is amultiple site organization consisting of ambulatory clinics and hospital sitesin [place], [place], [place] and [place]. This disclosure is being madepursuant to the Care Everywhere program and may not contain all information available regarding this patient. Last updated 18.[facility] [employer] Allergies Active Allergy Reactions Criticality Noted Date [...]
--- OUTSIDE RECORDS SUMMARY | 2025-02-23 14:37 | XMS_ITS | Clinical Summary ---
Author Organization [facility] Address [address] [place] [id number] Care Team Providers Care Instructor Bridge Name Role Phone None, Provider MD Primary [...] patient's age to complete this topic Insurance [place] Care Teams Instructor Bridge Relationship Specialty Start Date End Date None, Provider, PCP - General 04/12/20
--- NOTE | 2025-02-23 15:05 | ED_ITS ---
HPI - Back Pain/Injury General Chief Complaint: Back Pain/Injury Stated Complaint: Back pain Time Seen by Provider: 02/23/25 13:40 Source: patient Mode of arrival: ambulatory Limitations: no limitations History of Present Illness HPI Narrative: this is a 59-year-old male with no significant past medical history presents after he was doing some heavy lifting and has low back pain no radiation of his pain no radiculopathy no numbness or tingling no saddle paresthesias. Patient did not take any medication prior to arrival to the ER. No fever chills no chest pain or shortness of breath. There is no dysuria no flank pain no hematuria. MD elicited complaint: back pain Pertinent past history: prior back pain Onset (ago): day(s) Timing: constant Severity: moderate Pain scale (0-10): 6 Similar Symptoms Previously: Yes Quality: aching Location: lumbar spine Radiation: none Exacerbating factors: movement Relieving factors: immobilization Context: while lifting Associated symptoms: denies other symptoms Related Data Allergies Allergy/AdvReac Type Severity Reaction Status Date / Time Penicillins Allergy Unknown Rash Verified 02/23/25 13:38 sulfur dioxide Allergy Unknown Rash Verified 02/23/25 13:38 Review of Systems Review of Systems: All systems reviewed & are unremarkable except as noted in HPI and below PMFSH Past Medical History Medical History UTI (urinary tract infection) COVID-19 Hemorrhoids Sciatica Patient denies medical problems Surgical History Surgical History No history of previous surgery Family History Family History Other Diabetes mellitus Family history of malignant neoplasm Social History Social History Smoking packs per day: 1 Smoking cigarettes per day: 20.0 Years smoked: 30 Smoking pack-years: 30.00 Smoking status: Current every day smoker Tobacco type: cigarettes Alcohol intake: current Alcohol use details: approximately every 3rd day Substance use: current Substance use type: marijuana Living arrangements: with family Gender identity (if verbalized by the patient): Male Exam Const: General: healthy appearing, no acute distress and alert Nutritional Appearance: well nourished Orientation/consciousness: patient oriented x3 Limitations: no limitations Neck: Neck: normal visual inspection, no lymphadenopathy and no meningeal signs Chest: Chest palpation & inspection: normal inspection of the chest Resp: Effort & Inspection: normal respiratory effort Auscultation: clear to auscultation bilaterally Cardio: Rate: regular rate Rhythm: regular rhythm GI: GI Palp: Yes Soft to palpation Auscultation: normal bowel sounds : General: Yes bladder normal to palpation Urinary Catheter: Urinary Catheter: patent and draining Back/Spine/Pelvis: Back: no CVA tenderness Skin: General skin exam: normal color Rashes: no rashes Wounds: no wounds Neuro: General: patient oriented x3, moves all extremities, no meningeal signs and no focal motor deficits Extrem: Other: L4 midback pain with no radiation no sciatica. Course Course Emergency Course: Patient had a dose of 60mg Toradol and after reassessment pain level has improved, lumbar x-ray reviewed with patient. Vital Signs Vital signs: Vital Signs Temperature 36.7 C 02/23/25 13:33 Pulse Rate 72 02/23/25 13:33 Respiratory Rate 16 02/23/25 13:33 Blood Pressure 142/102 H 02/23/25 13:33 Pulse Oximetry 97 02/23/25 13:33 Oxygen Delivery Room Air 02/23/25 13:33 Temperature 36.7 C 02/23/25 13:33 Pulse Rate 72 02/23/25 13:33 Respiratory Rate 16 02/23/25 13:33 Blood Pressure 142/102 H 02/23/25 13:33 Pulse Oximetry 97 02/23/25 13:33 Oxygen Delivery Room Air 02/23/25 13:33 Critical Care Time Critical Care Time Critical Care Time: No Discharge Plan Discharge Clinical Impression: Back pain at L4-L5 level Patient Disposition: Home Condition: Stable Instructions: Antibiotic Form, Back Pain (ED) Additional Instructions: advised take medication as prescribed and follow with primary care physician within 1 week for further evaluation and treatment. Patient Language: Upper Sorbian Prescriptions: No Action naproxen 500 mg tablet 500 mg PO BID Qty: 14 0RF Follow-up/Referrals: Gerardo Chacon DO [Primary Care Provider] -
[2025-02-23 15:52] VITALS: BP 138/94; PULSE 71; RESP 16; O2SAT 97
== END 2025-02-23 15:50 | disposition home or self-care (01) ==
PROVIDERS: Emergency Provider Emergency Medicine; PCP Family Medicine
DX: M54.50 Low back pain, unspecified (principal); F17.210 Nicotine dependence, cigarettes, uncomplicated
CPT/HCPCS: 72100; 96372; 99283; J1885

== ENCOUNTER 2025-03-09 16:54 | Outpatient (RCR) | payer OTHER, SELFPAY ==
--- NOTE | 2025-03-09 17:56 | PTOPEVAL1 ---
Assessment and note entered by Albertina Oscar DPT Evaluation Information Assessment Status Evaluation Diagnosis low back pain ICD-10 Condition Codes (PT) Pain in low back M54.50 Onset 03/02/25 Subjective Information Patient reports he went to lift his dog into the tub about 2 weeks ago and felt his back go out. He reports since then pain has remained about the same. He reports he has had chronic back pain but pain is getting worse. He reports he saw the MD and was given pain medication, anti inflammatory and a muscle relaxer. He reports the medications have slightly decreased pain. He reports he has had x-rays that show arthritis. He reports pain is worse with bending over, lifting objects, and getting up out of a chair. 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 He returns to MD in 6 weeks. He reports that heat decreases pain. He denies radiating pain. Reported Pain Level Pain Score 4: Self Report Assessment PT Clinical Summary Mr. Wright is a 59 year old male who presents to PT with low back pain. He demonstrates decreased B LE strength, impaired posture and decreased LE flexibility limiting his ability to worm picker objects from the ground, lift items for house hold tasks and get up out of a chair. He would benefit from skilled PT to address impairments and return to PLOF. Plan of Care Interventions Electrical Stimulation,Gait Training,Hot Pack/Cold Pack,Manual Therapy,Mechanical Traction,Neuro Re- education,Patient/Caregiver Education,Therapeutic Activities,Therapeutic Exercise PT Services Indicated Yes Treatment Frequency and 2x weekly for 12 visits Duration These treatments will address the objective and functional deficits as defined above. The patient will be advanced safely and appropriately in order for the patient to progress towards his/her prior level of function. Additional exercises will be introduced and as well as a comprehensive home exercise program upon discharge, if needed, ?to ensure carryover of functional gains achieved in the clinic. This treatment plan has been reviewed and agreement upon by the patient.
--- NOTE | 2025-03-11 17:12 | PCPTNOTE ---
Patient called & cancelled scheduled appointment this date.
--- NOTE | 2025-03-18 17:33 | PCPTNOTE ---
Patient did not show up for scheduled appointment this date.
== END 2025-03-09 20:00 | disposition home or self-care (01) ==
LOC: CHSPT 16:54
PROVIDERS: PCP Family Medicine; Visit Provider Family Medicine
DX: M54.40 Lumbago with sciatica, unspecified side (principal); G89.29 Other chronic pain
CPT/HCPCS: 97014; 97110; 97140; 97161; G0283